=== PATIENT | male | born 1935 | race Caucasian/White ===

== ENCOUNTER → 2017-03-08 | Day surgery (SDC) | payer MEDICARE, OTHER ==
[~2017-03-08] VITALS: Ht 160 cm; Wt 77.3 kg
[2017-03-08] VITALS (9 sets, daily range): BP systolic 115–139; BP diastolic 61–89; PULSE 44–63; RESP 8–16; O2SAT 91–98
[~2017-03-08] MED LIST: 0.9% Sodium Chloride 1,000 ML IV ONE; 0.9% Sodium Chloride 1,000 ML IV SCH; AMIO200T PO; Atropine 1 mg/10 mL (Code) Syringe ONE; CHOL200049 PO; HYDROcodone-APAP 5-325 mg Tablet PO PRN; METO-386 PO; Methohexital 10 mg/mL 50 mL Inj IV ONE; NITR0.4T38 SL; Ondansetron 2 mg/mL 2 mL Inj IVPUSH PRN; SULI200T79 PO; TAMS0.4C98 PO; TRAM-14 PO; ZYL100 PO
--- NOTE | 2017-03-08 13:26 | NUR ---
1300 admit: Patient ambulates into department. Questions answered regarding cardioversion. Consent signed, IV started and labs drawn. PT/INR completed.
[2017-03-08 13:29] LABS: BASOPHILS % (AUTO) 0.7 % (0-3); EOSINOPHILS % (AUTO) 2.8 % (0-5); MONOCYTES % (AUTO) 7.4 % (4-12); Mean Corpuscular Hemoglobin 33.6 pg (27.0-35.0); Mean Corpuscular Volume 95.1 fL (81-100); NEUTROPHILS % (AUTO) 61.5 % (40-74); Platelet Count 127 bil/L (150-400)
--- NOTE | 2017-03-08 15:24 | NUR ---
1515 discharge note: Patient is alert and stable post cardioversion. He denies lightheadedness with being up at bedside. Taking PO. Reviewed DC instructions with patient and son. Hep lock DC'd and patient leaves with son.
--- NOTE | 2017-03-08 16:12 | PCM.PROC ---
Procedure Note Date of Service: Mar 08, 2017 Pre Procedure Diagnosis: Atrial fibrillation Post Procedure Diagnosis: Normal sinus rhythm with atrial bigeminy and PVCs. Procedure: Electrical cardioversion Provider and Steam Table Worker: Michael Huitron RN Indication for Procedure: Symptomatic atrial fibrillation Procedural Analgesia: Brevital 35 mg IV 1 Versed 1 mg IV 1 Procedure Details: A timeout was performing the correct patient procedure were verified. Patient was placed on continuous cardiac monitoring and continuous pulse oximetry. Supplemental oxygen was administered via nasal cannula. Defibrillator pads were placed in the anterior and posterior fashion. The pads were connected to a biphasic defibrillator which was placed in sync mode. After appropriate level of sedation was achieved, synchronize cardioversion was performed at 120 joules with 4 conversion to sinus rhythm. Post Procedure Plan: 1. Decrease metoprolol succinate to 25 mg once a day 2. Decrease amiodarone to 200 mg once a day. 3. Follow-up in one month. Miscellaneous: Recommend a lower dose of Brevital at 30 mg IV if a repeat cardioversion is required. copies to: Christian Fernandez MD, Oscar J MD Mar 08, 2017 16:12
== END | disposition home or self-care (01) ==
LOC: SPI 00:59
PROVIDERS: ATTEND Internal Medicine Cardiovascular Disease
DX: I48.91 Unspecified atrial fibrillation (principal); Z79.01 Long term (current) use of anticoagulants; D64.9 Anemia, unspecified; I10 Essential (primary) hypertension; I34.0 Nonrheumatic mitral (valve) insufficiency; Z87.891 Personal history of nicotine dependence
CPT/HCPCS: 36415; 80048; 85025; 92960; 93005; 94799; 99152; J0461; J2250; J2310; J7030